=== PATIENT | female | born 1940 | race Caucasian/White ===

== ENCOUNTER → 2021-01-11 13:03 | Outpatient (POV) | payer SELFPAY | PROVIDERS: Visit Provider Dermatology | DX: Z00.00 Encounter for general adult medical examination without abnormal findings (principal) ==

== ENCOUNTER 2024-02-29 12:43 | Emergency (ER) | payer MEDICARE, SELFPAY ==
[2024-02-29 13:50] VITALS: BP 154/78; PULSE 72; RESP 19; TEMP 36.6; O2SAT 97; BMI 20.9
--- NOTE | 2024-02-29 13:53 | EXP.UTC ---
Discharge Plan Disposition Patient Disposition: Home, Self-Care Condition: Good Prescriptions Prescriptions: New triamcinolone acetonide 0.1 % cream 1 applic topical BID PRN (Reason: itching) 7 Days Qty: 30 0RF cephalexin 500 mg capsule 500 mg PO QID 7 Days Qty: 28 0RF No Action atorvastatin 10 mg tablet 10 mg PO DAILY Patient Comments: TAKE 1 TABLET BY MOUTH ONCE DAILY levothyroxine 50 mcg tablet 50 mcg PO DAILY Patient Comments: TAKE 1 TABLET BY MOUTH ONCE DAILY lisinopril-hydrochlorothiazide 20-25 mg tablet 1 tab PO DAILY Patient Comments: TAKE 1 TABLET BY MOUTH ONCE DAILY pramipexole 1.5 mg tablet 1.5 mg PO DAILY Patient Comments: TAKE 2 TABLETS BY MOUTH ONCE DAILY Referrals Follow up/Referrals: Marco Antonio Garcia [Primary Care Provider] - See instructions Michelle Bateman DPM [Staff Physician] - See instructions Activity Restrictions/Add. Instructions Additional Instructions/Restrictions: Rest the extremities as much time as tolerated, Elevate the extremities as tolerated while you are resting. Take the medications as directed. Follow up with Dr. Bateman (podiatry). I put in a referral but you need to call her office and schedule an appointment. Follow up with your regular doctor. GO TO THE ER FOR ANY WORSENING SYMPTOMS Clinical Impressions Clinical Impression: Cellulitis of both feet Instructions Patient Instructions: Cellulitis Print Language Print Language: Syriac Discharge ED Provider: Damon Dean [facility] General Stated complaint: pain with feet and itching Time Seen by Provider: 02/29/24 13:52 History of Present Illness Provider Complaint: She states that for the past several days she has had swelling and redness of areas on both her feet. At times they are itching also. Related Data Home Medications ?Medication ?Instructions ?Recorded ?Confirmed atorvastatin 10 mg tablet 10 mg PO DAILY 02/29/24 02/29/24 levothyroxine 50 mcg tablet 50 mcg PO DAILY 02/29/24 02/29/24 lisinopril 20 1 tab PO DAILY 02/29/24 02/29/24 mg-hydrochlorothiazide 25 mg tablet pramipexole 1.5 mg tablet 1.5 mg PO DAILY 02/29/24 02/29/24 Previous Rx's ?Medication ?Instructions ?Recorded cephalexin 500 mg capsule 500 mg PO QID 7 days #28 caps 02/29/24 triamcinolone acetonide 0.1 % 1 applic topical BID PRN itching 7 02/29/24 topical cream days #30 grams Allergies Allergy/AdvReac Type Severity Reaction Status Date / Time No Known Allergies Allergy Verified 02/29/24 13:54 [facility] Disclaimer: The information contained in this section may have been updated after the patient was seen, as this information can be updated by other users. Medical History (Updated 02/29/24 @ 14:43 by Damon Dean APRN) Hyperlipidemia Hypertension Asthma Surgical History (Updated 02/29/24 @ 13:56 by Yvonne Garcia RN) History of hysterectomy History of tonsillectomy History of cholecystectomy History of appendectomy Social History Smoking Status: Never smoker alcohol intake: never current occupational status: retired Travel in the last 8 weeks: None ROS Obtained: Yes All systems reviewed & no additional complaints except as documented Constitutional Constitutional: Denies chills and Denies fever(s) Eyes Eyes: Denies eye discharge ENT Ears, Nose, Mouth, and Throat: Denies dizziness, Denies otalgia and Denies sore throat Cardiovascular Cardiovascular: Denies chest pain Respiratory Respiratory: Denies shortness of breath, Denies chest congestion, Denies cough, Denies stridor and Denies wheezing Gastrointestinal Gastrointestingal: Denies nausea or vomiting Musculoskeletal Musculoskeletal: Reports system reviewed and no additional complaints, except as documented and Denies arthralgias Integumentary/Breasts Skin/Breast: Reports redness and Denies wounds Neurologic Neurologic: Denies dizziness and Denies paresthesias Allergic/Immunologic Allergic/Immunologic: Denies wheezing Physical Exam General General appearance: alert and in no apparent distress Head Head exam: atraumatic, normocephalic and normal inspection Eye Eye exam: Present normal appearance, PERRL and EOMI ENT ENT exam: Present normal exam, normal oropharynx, mucous membranes moist, TM's normal bilaterally and normal external ear exam Neck Neck exam: Present normal inspection, full ROM and trachea midline; Absent meningismus or lymphadenopathy Chest Chest inspection: Present normal inspection and symmetric chest wall rise; Absent tenderness Respiratory Respiratory exam: Present normal lung sounds bilaterally; Absent respiratory distress Cardiovascular Cardiovascular exam: Present regular rate and normal rhythm; Absent JVD Abdominal Exam Abdominal exam: Present soft and normal bowel sounds; Absent distention, tenderness or guarding Extremities Exam Extremities exam: Present normal inspection, full ROM and normal capillary refill; Absent calf tenderness Back Exam Back exam: Present normal inspection; Absent tenderness Neurological Exam Neurological exam: Present alert and oriented X3 Psychiatric Psychiatric exam: Present normal affect and normal mood Skin Skin exam: Present erythema (there are areas of mild redness and warms to the tops of both her feet. no open wound, no drainage, no swelling noted. ) Lymphatic Lymphatic Findings: no adenopathy Medical Decision Making Medical Records Medical records reviewed: No I reviewed the patient's medical records. Screening: Per USPSTF and CDC recommendations, given the prevalence of disease in our region, it is our hospital?s policy to screen for HIV and viral Hepatitis for all patients aged 18 and over and those with ongoing risk factors. Guillaume Inquiry Pt receiving controlled substance: No
[2024-02-29 14:53] VITALS: BP 154/78; PULSE 72; RESP 19; TEMP 36.6; O2SAT 97
== END 2024-02-29 14:58 | disposition home or self-care (01) ==
PROVIDERS: Emergency Provider Nurse Practitioner Family; PCP Family Medicine
DX: L03.115 Cellulitis of right lower limb (principal); L03.116 Cellulitis of left lower limb
CPT/HCPCS: 99213; G0381